=== PATIENT | male | born 1935 | race Caucasian/White ===

== ENCOUNTER 2017-05-16 11:13 | Emergency (ER) | payer MEDICARE | END 2017-05-16 12:16 | disposition home or self-care (01) | LOC: FER 11:13 | DX: S01.81XA Laceration without foreign body of other part of head, initial encounter (principal); Z23 Encounter for immunization; W01.10XA Fall on same level from slipping, tripping and stumbling with subsequent striking against unspecified object, initial encounter | CPT/HCPCS: 90471; 90715 ==